=== PATIENT | male | born 2000 | race Caucasian/White ===

== ENCOUNTER → 2019-01-09 | Outpatient (CLI) | payer OTHER ==
--- NOTE | 2019-01-09 16:04 | RAD ---
Examination: BREAST RIGHT History: RT BREAST LUMP AND PAIN, HX OF GYNECOMASTIA Comparison/Correlation: None Findings: Ultrasound imaging of the right and left breast was performed. Imaging of the retroareolar region was performed. No masses or cysts. Right subareolar breast tissue measuring 3.1 cm x 4 cm x 0.9 cm. Left subareolar breast tissue measuring 2.8 cm x 2.0 cm x 0.6 cm. Impression: Bilateral gynecomastia. Findings are greater on the right as compared to the left. No suspicious process. Electronically signed by: Tenzin Han MD (01/09/2019 4:01 PM) [facility]
== END | disposition home or self-care (01) ==
LOC: US 14:52
PROVIDERS: ATTEND Nurse Practitioner Family
DX: N62 Hypertrophy of breast (principal)
CPT/HCPCS: 76641

== ENCOUNTER 2019-07-12 00:52 | Emergency (ER) | payer OTHER ==
[~2019-07-12] VITALS: Ht 175.3 cm; Wt 59.9 kg
[2019-07-12 01:06] VITALS: BP 143/94
--- NOTE | 2019-07-12 01:36 | PHYS DOC ---
Past History Past Medical History: Asthma, Depression Past Surgical History: Other Additional Past Surgical Histo: [place] teeth extraction Alcohol Use: Occasionally Drug Use: None Adult General Chief Complaint Chief Complaint: SHOULDER INJURY HPI HPI Patient is a pleasant 19-year-old male who presents to the emergency department for evaluation. He states he does a lot of mixed martial arts maneuvers, and when he went to throw a punch, felt his left shoulder dislocated. He states he has never injured his shoulder like this before. Denies any numbness or weakness , or any other complaints. He is not able to move the shoulder without significant pain. He is holding his arm adducted, and somewhat internally rotated. Denies any other complaints. Review of Systems Review of Systems Constitutional: Denies fever or chills [] Musculoskeletal: Denies back pain or joint pain, other than the left shoulder [] Neurologic: Denies headache, focal weakness or sensory changes [] Allergies Allergies Allergies Coded Allergies Type Severity Reaction Last Updated Verified No Known Drug Allergies 07/12/19 No Physical Exam Physical Exam PHYSICAL EXAM: CONSTITUTIONAL: Well developed, well nourished HEAD: normocephalic, atraumatic EENT: PERRL, EOMI. Conjunctivae normal color, sclerae non-icteric; moist mucous membranes. NECK: Supple, non-tender; no meningismus. LUNGS: Lungs CTA, breathing even and unlabored. Normal air movement. HEART: Regular rate and rhythm, no murmur CHEST: No deformity; non-tender ABDOMEN: The abdomen is soft, and non-tender, no masses or bruits. EXTREM: There is flattening of the left deltoid, with prominence of the anterior shoulder, consistent with an anterior/inferior shoulder dislocation. Distal PMS are intact. The remainder the extremities are unremarkable, with Normal ROM; no deformity, no calf tenderness. Normal pulses palpable in all extremities. There is no pedal edema. SKIN: No rash; no diaphoresis NEURO: Alert; normal speech and cognition; CN's grossly intact; strength grossly intact without focal deficit. BACK: No CVA TTP. Current Patient Data Vital Signs Vital Signs Date Time Temp Pulse Resp B/P (MAP) Pulse Ox O2 Delivery O2 Flow Rate FiO2 07/12/19 01:06 98.3 90 16 98 Room Air EKG EKG [] Radiology/Procedures Radiology/Procedures [] Course & Med Decision Making Course & Med Decision Making Prereduction x-rays were not obtained as the shoulder was clinically dislocated. Using a combination of slow gentle external rotation and scapular manipulation, the anterior/inferior shoulder dislocation was reduced, without significant difficulty. Sedation was not required. Post procedure PMS intact and deltoid se nsation intact. Postprocedure x-rays reveal a few loose calcific densities inferior to the humeral head of uncertain significance, no definite Fx, no dislocation. Pt declined need for anelgesia.. I discussed importance of close follow-up with orthopedics, and return precautions. The patient will be placed in a sling. Dragon Disclaimer Dragon Disclaimer This electronic medical record was generated, in whole or in part, using a voice recognition dictation system. Departure Departure: Impression: Primary Impression: Shoulder dislocation Disposition: 01 HOME, SELF-CARE Condition: STABLE Referrals: PCP,UNKNOWN (PCP) Patient Instructions: Shoulder Dislocation Additional Instructions: Follow-up with orthopedics, call [phone] to schedule appointment. Avoid engaging in contact sports or other strenuous physical activity or exercising your shoulder to the extremes of range of motion, until cleared to do so by an orthopedic physician. KENDELL GE MD Jul 12, 2019 01:36
--- NOTE | 2019-07-12 02:23 | RAD ---
Study: SHOULDER 2+V LEFT Indication: Status post reduction. Comparison: None. Findings: Glenohumeral and AC joint alignment is anatomic. On the AP internal rotation view, there is flattening along the posterior aspect of the humeral head. Small foci of mineralization seen medial to the humeral surgical neck. No discrete abnormality of the glenoid rim. Impression: 1. Flattened posterior humeral head which could be related to impaction from a prior anterior shoulder dislocation event. Correlate with patient history. 2. Small foci of mineralization projecting along the medial aspect of the humeral surgical neck. The etiology of this finding is uncertain and no donor site is identified to suggest avulsion injury though this remains a consideration. If there is concern for internal derangement of the left shoulder, nonemergent MRI could be performed such as on an outpatient basis and after any potential acute inflammatory changes have lessened. Electronically signed by: FAIZA DURBIN MD (07/12/2019 2:20 AM) [facility]
== END 2019-07-12 01:52 | disposition home or self-care (01) ==
LOC: ER 00:52
DX: S43.025A Posterior dislocation of left humerus, initial encounter (principal); J45.909 Unspecified asthma, uncomplicated; X50.9XXA Other and unspecified overexertion or strenuous movements or postures, initial encounter; Y93.75 Activity, martial arts; Y92.89 Other specified places as the place of occurrence of the external cause; Y99.8 Other external cause status
CPT/HCPCS: 23650; 73030; 99284